=== PATIENT | male | born 1975 | race Caucasian/White ===

== ENCOUNTER 2019-08-08 21:34 | Emergency (ER) | payer OTHER ==
[2019-08-08 21:53] VITALS: BP 125/81; PULSE 78; RESP 18; TEMP 99.3
--- NOTE | 2019-08-08 23:06 | ED ---
Lower Extremity Injury HPI - General Chief Complaint: Extremity Injury, Lower Stated Complaint: Left ankle injury, [facility] Time Seen by Provider: 08/08/19 22:00 Source: patient, family Mode of arrival: wheelchair Limitations: no limitations - History of Present Illness Initial Comments: Patient is a 44-year-old male presenting to emergency Department with complaints of left ankle pain that happened prior to arrival. Patient states he was in training at the [employer] when he was on all fours and tried to stand up when he fell his ankle rolled. Patient states he did hear a pop. Patient has been having pain and swelling since the incident. Patient denies any previous injuries to that ankle or foot. Patient has not taken any medications. Patient has no other complaints at this time. Upon arrival to ER, vital signs stable, afebrile. - Related Data Allergies Allergy/AdvReac Type Severity Reaction Status Date / Time Penicillins Allergy Unknown Verified 08/08/19 21:53 Childhood Review of Systems ROS Statement: Those systems with pertinent positive or pertinent negative responses have been documented in the HPI. ROS Other: All systems not noted in ROS Statement are negative. Past Medical History Past Medical History: No Reported History History of Any Multi-Drug Resistant Organisms: None Reported Past Surgical History: No Surgical Hx Reported Past Psychological History: No Psychological Hx Reported Smoking Status: Current every day smoker Past Alcohol Use History: Occasional Past Drug Use History: None Reported General Exam - General Exam Comments Initial Comments: GENERAL: Well-appearing, well-nourished and in no acute distress. HEAD: Atraumatic, normocephalic. EYES: Pupils equal round and reactive to light, extraocular movements intact, sclera anicteric, conjunctiva are normal. ENT: TMs normal, nares patent, oropharynx clear without exudates. Moist mucous membranes. NECK: Normal range of motion, supple without lymphadenopathy or JVD. LUNGS: Breath sounds clear to auscultation bilaterally and equal. No wheezes rales or rhonchi. HEART: Regular rate and rhythm without murmurs, rubs or gallops. ABDOMEN: Soft, nontender, normoactive bowel sounds. No guarding, no rebound. No masses appreciated. : Deferred EXTREMITIES: Pain with palpation on the left lateral malleolus as well as medial malleolus. Patient has mild edema present as well. Decreased left ankle range of motion secondary to pain. No clubbing or cyanosis. NEUROLOGICAL: Cranial nerves II through XII grossly intact. Normal speech. PSYCH: Normal mood, normal affect. SKIN: Warm, Dry, normal turgor, no rashes or lesions noted.q Limitations: no limitations Course Vital Signs 08/08/19 21:50 Temperature 99.3 F Pulse Rate 78 Respiratory 18 Rate Blood Pressure 125/81 O2 Sat by Pulse 97 Oximetry Medical Decision Making - Medical Decision Making Patient is a 44-year-old male presenting with left ankle pain and swelling to happen prior to arrival. Patient was attempting to stand up from in all 4 position well and [employer] when he felt a pop in his left ankle. On exam patient has pain and swelling over the lateral malleolus as well as pain in the medial malleolus. Review of x-rays reveal no obvious fractures. We are awaiting the results from radiology however patient does not want to wait anymore as it has been over 2 hours. I discussed with patient that we should wait for radiologist reading however they are determined to leave. It was discussed with patient to remain nonweightbearing, ice, elevate, use compression wrap. And patient will follow up with orthopedics tomorrow. Patient is agreement with this plan of care. Case discussed with Dr. Riddle. Return parameters were discussed with the patient and he verbalized understanding. Disposition Clinical Impression: Sprain of left ankle, Left ankle pain Disposition: HOME SELF-CARE Condition: Stable Instructions (If sedation given, give patient instructions): Ankle Sprain (ED) Additional Instructions: Please return to the Emergency Department if symptoms worsen or any other concerns. Follow-up with orthopedics as discussed. Is patient prescribed a controlled substance at d/c from ED?: No Referrals: None,Stated [Primary Care Provider] - 1-2 days Jose Armando Castillo MD [STAFF PHYSICIAN] - 1-2 days
--- NOTE | 2019-08-09 01:55 | XR ---
EXAM: XR Left Foot Complete, 3 or More Views CLINICAL HISTORY: ITS.REASON XR Reason: pain TECHNIQUE: Frontal, lateral and oblique views of the left foot. COMPARISON: No relevant prior studies available. FINDINGS: Bones/joints: No acute fracture. Soft tissues: Punctate soft tissue opacity adjacent to the second distal phalanx. IMPRESSION: 1. No acute fracture. 2. Punctate soft tissue opacity adjacent to the second distal phalanx. Correlate clinically regarding foreign body.
--- NOTE | 2019-08-09 01:57 | XR ---
EXAM: XR Left Ankle Complete, 3 or More Views CLINICAL HISTORY: ITS.REASON XR Reason: pain TECHNIQUE: Frontal, lateral and oblique views of the left ankle. COMPARISON: No relevant prior studies available. FINDINGS: Bones/joints: No acute fracture. Soft tissues: Soft tissue swelling. IMPRESSION: No acute fracture.
== END 2019-08-09 00:08 | disposition home or self-care (01) ==
LOC: EC 21:34
DX: S93.402A Sprain of unspecified ligament of left ankle, initial encounter (principal); F17.200 Nicotine dependence, unspecified, uncomplicated; Z88.0 Allergy status to penicillin; W01.0XXA Fall on same level from slipping, tripping and stumbling without subsequent striking against object, initial encounter; Y93.79 Activity, other specified sports and athletics; Y92.84 Military training ground as the place of occurrence of the external cause; Y99.0 Civilian activity done for income or pay
CPT/HCPCS: 99283

== ENCOUNTER 2022-06-09 09:07 | Day surgery (SDC) | payer BC, OTHER ==
[2022-06-04 09:22] VITALS: BMI 26.5
[~2022-06-09 09:07] MED LIST: LACTATED RINGERS 1,000 ML IV SCH; LIDOCAINE 1% (10MG/ML) FOR IV START INTRADERMA PRN
[2022-06-09 09:34] VITALS: TEMP 96.9
[2022-06-09] MEDS ORDERED: LIDOCAINE 2% INJ 20 MG/ML (2 ML VIAL) ONE (10:42)
[2022-06-09] MEDS ORDERED: PROPOFOL 10 MG/ML 20 ML VIAL IV ONE (10:42)
--- NOTE | 2022-06-09 10:52 | P.PCN ---
Date of Procedure: 06/09/22 Procedure(s) Performed: BRIEF HISTORY: Patient is a 46-year-old, pleasant, white male scheduled for an upper endoscopy as a part of evaluation of long-standing history of GERD of many years duration.. PROCEDURE PERFORMED: Esophagogastroduodenoscopy with biopsy. PREOPERATIVE DIAGNOSIS: Long-standing history of GERD. IV sedation per anesthesia. PROCEDURE: After informed consent was obtained, the patient was brought into the endoscopy unit. IV sedation was administered by Anesthesia under continuous monitoring. Initially the Olympus GIF-140 video endoscope was inserted into the mouth. Esophagus intubated without any difficulty. It was gradually advanced into the stomach and duodenum and carefully examined. The bulb and the second part of the duodenum appeared normal. The scope at this time was withdrawn to the stomach, adequately insufflated with air, and upon careful examination, mucosa of the antrum, body, cardia and the fundus appeared normal. The scope was then withdrawn into the esophagus. The GE junction was located at 35 cm from the incisors.moderate size hiatal hernia noted. There was evidence of Ann's esophagus extending from 35-36 cm from the incisors and multiple biopsies were done from this area. They were 2 superficial erosions consistent with LA grade B reflux esophagitis. The esophagus appeared normal. The patient tolerated the procedure well. IMPRESSION: 1. Mild antral gastritis. 2. Moderate size hiatal hernia 3. Short segment Ann's esophagus extending from 35-36 cm from the incisors and LA grade B reflux esophagitis RECOMMENDATIONS: The findings of this examination were discussed with the patient as well as his family. He was advised to follow with the biopsy results. He will the biopsy reveals evidence of Ann's esophagus, he can have a repeat upper endoscopy in 3 years. In the meantime he will continue with Protonix 40 mg daily and follow antireflux measures..
[2022-06-09 10:59] VITALS: RESP 16
[2022-06-09 11:10] VITALS: BP 121/82; PULSE 63
== END 2022-06-09 11:30 | disposition home or self-care (01) ==
LOC: ORWHC2ENDO 09:07
PROVIDERS: ATTEND Internal Medicine Gastroenterology
DX: K21.00 Gastro-esophageal reflux disease with esophagitis, without bleeding (principal); K22.70 Barrett's esophagus without dysplasia; K29.50 Unspecified chronic gastritis without bleeding; K44.9 Diaphragmatic hernia without obstruction or gangrene; Z88.0 Allergy status to penicillin; F17.200 Nicotine dependence, unspecified, uncomplicated
CPT/HCPCS: 88305; 43239; J2704; J2001